=== PATIENT | male | born 1990 | race Caucasian/White ===

== ENCOUNTER 2022-05-05 21:40 | Emergency (ER) | payer MEDICARE, OTHER ==
[~2022-05-05] VITALS: Ht 175.3 cm; Wt 66.0 kg
[2022-05-05] MEDS ORDERED: CHOL200059 PO (22:43)
[2022-05-05] MEDS ORDERED: TRAZ-252 PO (22:43)
[2022-05-05] MEDS ORDERED: OLAN10TA74 PO (22:43)
[2022-05-05 23:38] LABS: BASOPHILS % (AUTO) 0.7 % (0.0-2.0); HEMATOCRIT 46.9 % (41-53); HEMOGLOBIN 15.2 g/dL (13.5-17.5); LYMPHOCYTES % (AUTO) 37.5 % (22.0-44.0); MEAN CORPUSCULAR HEMOGLOBIN 30.2 pg (26.0-34.0); MEAN CORPUSCULAR HGB CONC 32.4 G/dL (31.0-37.0); MEAN CORPUSCULAR VOLUME 93 fL (80-100); MONOCYTES % (AUTO) 7.6 % (2.0-9.0); NEUTROPHILS # (AUTO) 6.9 K/uL (1.8-7.7); NEUTROPHILS % (AUTO) 52.2 % (40.0-70.0); PLATELET COUNT (AUTO) 242 K/uL (150-450); RED BLOOD CELL COUNT(AUTO) 5.03 MIL/uL (4.50-5.90); RED CELL DISTRIBUTION WIDTH 13.6 % (11.5-14.5)
[2022-05-05 23:49] LABS: ANION GAP 11 mmol/L (8-16); CALCIUM, TOTAL 8.8 mg/dL (8.8-10.5); CARBON DIOXIDE 25 mmol/L (22-29); CHLORIDE 104 mmol/L (98-107); CREATININE 1.33 mg/dL (0.60-1.30); GLOMERULAR FILTR. RATE CALC > 60 mL/min (>60); GLUCOSE,RANDOM 95 mg/dL (70-110); POTASSIUM 3.6 mmol/L (3.5-5.1); SODIUM SERUM 140 mmol/L (136-145); UREA NITROGEN, BLOOD 25 mg/dL (7-18)
[2022-05-05 23:55] LABS: ALANINE AMINOTRANSFERASE 54 U/L (12-78); ALKALINE PHOSPHATASE 86 U/L (46-116); ASPARTATE AMINOTRANSFERASE 51 U/L (15-37); BILIRUBIN,TOTAL 0.2 mg/dL (0.1-1.0)
[2022-05-06] MEDS ORDERED: OLANZapine 5 MG TABLET PO ONE (01:00)
[2022-05-06 01:30] VITALS: BP 132/74
[2022-05-06] MEDS ORDERED: OLAN10TA74 PO (03:43)
== END 2022-05-06 03:47 | disposition home or self-care (01) ==
LOC: EMS 21:41
DX: S00.83XA Contusion of other part of head, initial encounter (principal); K03.1 Abrasion of teeth; F20.9 Schizophrenia, unspecified; F10.20 Alcohol dependence, uncomplicated; F17.210 Nicotine dependence, cigarettes, uncomplicated; Z98.890 Other specified postprocedural states; Z91.040 Latex allergy status; Z88.8 Allergy status to other drugs, medicaments and biological substances; W22.8XXA Striking against or struck by other objects, initial encounter; Y93.89 Activity, other specified; Y92.89 Other specified places as the place of occurrence of the external cause; Y99.8 Other external cause status
CPT/HCPCS: 99283; 80053; 85025; G0480

== ENCOUNTER 2022-12-24 21:34 | Emergency (ER) | payer MEDICARE, MEDICAID ==
[~2022-12-24] VITALS: Ht 167.6 cm; Wt 68.0 kg
[~2022-12-24 21:34] MED LIST: CHOL200059 PO; OLAN10TA74 PO; TRAZ-252 PO
[2022-12-24 21:44] VITALS: TEMP 98.4
[2022-12-24] MEDS ORDERED: BACITRACIN 0.9 GM PACKET OINTMENT TP ONE (22:30)
[2022-12-24 22:42] LABS: PH,URINE DRUG SCREEN 5.5 (5.0-8.0)
[2022-12-24 22:49] LABS: AMPHET/METH SCREEN,URINE NEGATIVE (NEGATIVE); BARBITURATE SCREEN, URINE NEGATIVE (NEGATIVE); BENZODIAZEPINES SCREEN,URINE NEGATIVE (NEGATIVE); CANNABINOID SCREEN,URINE NEGATIVE (NEGATIVE); COCAINE SCREEN,URINE NEGATIVE (NEGATIVE); METHADONE SCREEN, URINE NEGATIVE (NEGATIVE); OPIATE SCREEN,URINE NEGATIVE (NEGATIVE); PHENCYCLIDINE SCREEN,URINE POSITIVE (NEGATIVE)
[2022-12-24 22:53] LABS: ALCOHOL, URINE DRUG SCREEN NEGATIVE (NEGATIVE)
[2022-12-24 23:52] VITALS: BP 138/89; PULSE 102; RESP 18
== END 2022-12-24 23:55 | disposition home or self-care (01) ==
LOC: EMS 21:35
DX: S90.921A Unspecified superficial injury of right foot, initial encounter (principal); F10.20 Alcohol dependence, uncomplicated; F20.9 Schizophrenia, unspecified; F17.210 Nicotine dependence, cigarettes, uncomplicated; Z02.83 Encounter for blood-alcohol and blood-drug test; Z98.890 Other specified postprocedural states; Z91.040 Latex allergy status; Z88.8 Allergy status to other drugs, medicaments and biological substances; X58.XXXA Exposure to other specified factors, initial encounter; Y93.89 Activity, other specified; Y92.89 Other specified places as the place of occurrence of the external cause; Y99.8 Other external cause status
CPT/HCPCS: 80307; 99283

== ENCOUNTER 2023-11-06 17:33 | Inpatient (IN) | payer MEDICARE, MEDICAID ==
[~2023-11-06] VITALS: Ht 175.3 cm; Wt 70.9 kg
[2023-11-06] MEDS ORDERED: HALOPERIDOL 5 MG TABLET ONE (19:46)
[2023-11-06] MEDS ORDERED: DiphenhydrAMINE HCL 50 MG CAPSULE ONE (19:46)
[2023-11-06] MEDS ORDERED: LORazepam 2 MG TABLET ONE (19:46)
[2023-11-06] MEDS ORDERED: PALI9TAB15 PO (19:49)
[2023-11-06] MEDS: DiphenhydrAMINE HCL 50 MG/ML VIAL IM ONE (19:57)
[2023-11-06] MEDS: HALOPERIDOL LACTATE 5 MG/ML VIAL IM ONE (19:57)
[2023-11-06] MEDS: LORazepam 2 MG/ML VIAL IM ONE (19:57)
[2023-11-06] MEDS: DiphenhydrAMINE HCL 25 MG CAPSULE PO ONE (20:03)
[2023-11-06] MEDS: HALOPERIDOL 5 MG TABLET PO ONE (20:03)
[2023-11-06] MEDS: LORazepam 2 MG TABLET PO ONE (20:03)
[2023-11-06 21:05] LABS: COVID AG,FIA SOURCE NASAL SWAB
[2023-11-06 21:21] LABS: SARS-COV2 (COVID) ANTIGEN,FIA Negative (Negative)
[2023-11-06 22:43] LABS: BASOPHILS % (AUTO) 0.7 % (0.0-2.0); HEMATOCRIT 42.7 % (41-53); HEMOGLOBIN 13.9 g/dL (13.5-17.5); LYMPHOCYTES # (AUTO) 4.5 K/uL (1.0-4.8); LYMPHOCYTES % (AUTO) 54.7 % (22.0-44.0); MEAN CORPUSCULAR HEMOGLOBIN 29.6 pg (26.0-34.0); MEAN CORPUSCULAR HGB CONC 32.6 G/dL (31.0-37.0); MEAN CORPUSCULAR VOLUME 91 fL (80-100); MONOCYTES # (AUTO) 0.7 K/uL (0.1-1.0); MONOCYTES % (AUTO) 8.3 % (2.0-9.0); NEUTROPHILS # (AUTO) 2.9 K/uL (1.8-7.7); NEUTROPHILS % (AUTO) 35.3 % (40.0-70.0); PLATELET COUNT (AUTO) 195 K/uL (150-450); RED BLOOD CELL COUNT(AUTO) 4.71 MIL/uL (4.50-5.90); RED CELL DISTRIBUTION WIDTH 14.9 % (11.5-14.5); WHITE BLOOD COUNT (AUTO) 8.3 K/uL (4.5-11.0)
[2023-11-06 22:52] LABS: ANION GAP 9 mmol/L (8-16); CALCIUM, TOTAL 8.3 mg/dL (8.8-10.5); CARBON DIOXIDE 26 mmol/L (22-29); CHLORIDE 102 mmol/L (98-107); CREATININE 1.29 mg/dL (0.60-1.30); GLOMERULAR FILTR. RATE CALC > 60 mL/min (>60); GLUCOSE,RANDOM 140 mg/dL (70-110); POTASSIUM 3.6 mmol/L (3.5-5.1); SODIUM SERUM 137 mmol/L (136-145); UREA NITROGEN, BLOOD 16 mg/dL (7-18)
[2023-11-06 22:56] LABS: ALCOHOL, BLOOD (SERUM) < 3 mg/dL (0-10)
[2023-11-07 03:18] VITALS: BP 115/65; PULSE 64; RESP 18; TEMP 97.8; O2SAT 100
[2023-11-07 08:25] VITALS: BP 119/97; PULSE 85; RESP 17; TEMP 97; O2SAT 98
[2023-11-07] MEDS: NICOTINE 14 MG/24 HOUR PATCH TD ONE (09:14)
== END 2023-11-07 12:50 | disposition home or self-care (01) | DRG 885 ==
LOC: EMS 17:33 → B3A 11-07 00:24
PROVIDERS: ADMIT Psychiatry & Neurology Child & Adolescent Psychiatry; ATTEND Psychiatry & Neurology Child & Adolescent Psychiatry
PROC: GZ56ZZZ Individual Psychotherapy, Supportive (ICD-10-PCS; principal; 2023-11-07)
DX: F25.9 Schizoaffective disorder, unspecified (principal); R45.851 Suicidal ideations; I10 Essential (primary) hypertension; Z20.822 Contact with and (suspected) exposure to COVID-19; R45.850 Homicidal ideations; Z87.891 Personal history of nicotine dependence; Z98.2 Presence of cerebrospinal fluid drainage device
CPT/HCPCS: 80048; 85025; 99285; G0480

== ENCOUNTER 2025-01-18 12:54 | Emergency (ER) | payer MEDICARE, OTHER ==
[~2025-01-18] VITALS: Ht 175.3 cm; Wt 70.5 kg
[~2025-01-18 12:54] MED LIST changes: -CHOL200059 PO; -OLAN10TA74 PO; +PALI9TAB PO; +PALI9TAB15 PO; -TRAZ-252 PO
[2025-01-18 12:56] VITALS: BP 119/85; PULSE 82; RESP 16; TEMP 97.9; O2SAT 100
[2025-01-18] MEDS ORDERED: CLIN-142 PO (14:47)
== END 2025-01-18 15:30 | disposition home or self-care (01) ==
LOC: EMS 12:54
DX: L03.116 Cellulitis of left lower limb (principal); F12.90 Cannabis use, unspecified, uncomplicated; F14.90 Cocaine use, unspecified, uncomplicated; F15.90 Other stimulant use, unspecified, uncomplicated; F20.9 Schizophrenia, unspecified; F17.210 Nicotine dependence, cigarettes, uncomplicated; F10.90 Alcohol use, unspecified, uncomplicated; Z98.2 Presence of cerebrospinal fluid drainage device; Z88.0 Allergy status to penicillin; Z91.040 Latex allergy status; Z79.899 Other long term (current) drug therapy; Y90.9 Presence of alcohol in blood, level not specified
CPT/HCPCS: 99283